=== PATIENT | female | born 1945 | race Caucasian/White ===

== ENCOUNTER 2016-11-20 12:38 | Day surgery (SDC) | payer OTHER ==
[2016-11-20] MEDS ORDERED: LR 1,000 ML IV ONE (12:39)
[2016-11-20] MEDS ORDERED: LIDOCAINE 1% 5 ML SDV ID PRN (12:39)
[2016-11-20] MEDS ORDERED: LIDOCAINE 1% 5 ML SDV ONE (12:44)
[2016-11-20] MEDS ORDERED: MIDAZOLAM 2 MG/2 ML VIAL ONE (13:08)
[2016-11-20] MEDS ORDERED: LIDOCAINE 2% 5 ML SDV ONE (13:10)
[2016-11-20] MEDS ORDERED: PROPOFOL/EMULSION 500 MG/50 ML BOTTLE IV ONE (13:10)
--- NOTE | 2016-11-20 15:45 | GPN ---
DATE OF PROCEDURE: 11/20/2016 PROCEDURE: Colonoscopy with biopsy. INDICATION: The patient is a 70-year-old female who presents for surveillance of a complicated hepatic flexure polyp. CONSENT: Risks, benefits, and alternatives of the procedure were discussed in great detail with the patient. Risks of infection, bleeding, perforation, and sedation were discussed. All questions answered. Informed consent obtained. MEDICATIONS: Propofol. Please see Anesthesia record for details. ESTIMATED BLOOD LOSS: Insignificant. COLONOSCOPIC EVALUATION: A rectal exam was performed and no palpable mass was felt. The Olympus colonoscope was introduced in the rectum and advanced to cecum where the ileocecal valve and appendiceal orifice were seen. The quality of the prep was good. In the hepatic flexure, mild nodularity was noted just proximal to the Josefa ink tattoo. This nodularity measured approximately 3 mm. Jumbo forceps was then utilized, and a biopsy was taken in this area. No other obvious areas of remnant polyp were seen. In the sigmoid colon, multiple small diverticula were seen. IMPRESSION: 1. Sigmoid diverticulosis. 2. Possible small remnant of hepatic flexure polyp. RECOMMENDATION: 1. Follow up on biopsy results. 2. Fiber supplementation. 3. Repeat colonoscopy in 2 years due to history of a complex polyp. /[id number]/MODL MTDD
== END 2016-11-20 15:50 | disposition home or self-care (01) ==
LOC: FSGY 12:38
PROVIDERS: ATTEND Internal Medicine Gastroenterology
PROC: 0DBE8ZX Excision of Large Intestine, Via Natural or Artificial Opening Endoscopic, Diagnostic (ICD-10-PCS; principal; 2016-11-20 14:00)
DX: K63.5 Polyp of colon (principal); K57.30 Diverticulosis of large intestine without perforation or abscess without bleeding
CPT/HCPCS: J2250; J2704

== ENCOUNTER → 2016-11-30 | Outpatient (CLI) | payer OTHER | LOC: FIMAGING 12:23 | DX: Z12.31 Encounter for screening mammogram for malignant neoplasm of breast (principal); Z80.3 Family history of malignant neoplasm of breast | CPT/HCPCS: G0202 ==

== ENCOUNTER → 2017-06-05 | Outpatient (CLI) | payer OTHER | LOC: FIMAGING 14:35 | PROVIDERS: ATTEND Internal Medicine | DX: N95.0 Postmenopausal bleeding (principal); N83.311 Acquired atrophy of right ovary; N83.312 Acquired atrophy of left ovary ==

== ENCOUNTER → 2017-12-03 | Outpatient (CLI) | payer OTHER | LOC: FIMAGING 11:46 | PROVIDERS: ATTEND Internal Medicine | DX: Z12.31 Encounter for screening mammogram for malignant neoplasm of breast (principal); Z80.3 Family history of malignant neoplasm of breast ==

== ENCOUNTER → 2019-01-02 | Outpatient (CLI) | payer OTHER | LOC: FIMAGING 08:32 | PROVIDERS: ATTEND Internal Medicine | DX: Z12.31 Encounter for screening mammogram for malignant neoplasm of breast (principal); Z80.3 Family history of malignant neoplasm of breast ==

== ENCOUNTER 2019-02-10 11:55 | Day surgery (SDC) | payer OTHER ==
[2019-02-10] MEDS ORDERED: LIDOCAINE 1% 2 ML INJ ID PRN (12:26)
[2019-02-10] MEDS ORDERED: LR 1,000 ML IV ONE (12:26)
--- NOTE | 2019-02-10 13:17 | PDANEPAE ---
ANE History of Present Illness here for colonoscopy ANE Past Medical History - Cardiovascular History Hx Hypertension: No Hx Arrhythmias: No Hx Chest Pain: No Hx Coronary Artery / Peripheral Vascular Disease: No Hx CHF / Valvular Disease: No Hx Palpitations: No - Pulmonary History Hx COPD: No Hx Asthma/Reactive Airway Disease: No Hx Recent Upper Respiratory Infection: No Hx Oxygen in Use at Home: No Hx Sleep Apnea: No Sleep Apnea Screening Result - Last Documented: Negative - Neurologic History Hx Cerebrovascular Accident: No Hx Seizures: No Hx Dementia: No - Endocrine History Hx Diabetes: No - Renal History Hx Renal Disorders: No - Liver History Hx Hepatic Disorders: No - Neurological & Psychiatric Hx Hx Neurological and Psychiatric Disorders: No - Cancer History Hx Cancer: No - Congenital Disorder History Hx Congenital Disorders: No - GI History Hx Gastrointestinal Disorders: Yes Gastrointestinal History Comment: occ reflux - Other Health History Other Health History: None - Chronic Pain History Chronic Pain: No - Surgical History Prior Surgeries: MENISCUS REPAIR 07/2017. 04/10/16 right ACL repair with Dr. Bill. broken foot bone repair. broken arm repair. bilateral shoulders- arthroscopy ANE Review of Systems Review of systems is: negative Review of Systems: - Exercise capacity Exercise capacity: >=4 METS METS (RN): 5 METS ANE Patient History - Allergies Allergies/Adverse Reactions: No Known Allergies Allergy (Verified 09/26/16 16:04) - Home Medications Home medications: home medication list seen and reviewed Home Medications: Lumigan 0.01% (RX) 1 drop EACHEYE HS 03/18/15 [Last Taken 11/19/16] Restasis Opht Drops(RX) 1 drop EACHEYE BID 03/18/15 [Last Taken 11/19/16] Sertraline HCl 25 mg DAILY 03/18/15 [Last Taken 11/16/16] Fish Oil 2 tab DAILY 03/23/16 [Last Taken 11/16/16] Magnesium 2 tab DAILY 03/23/16 [Last Taken 11/17/16] Multivitamin (OTC) 1 tab DAILY 03/23/16 [Last Taken 11/17/16] Zinc 1 tab DAILY 03/23/16 [Last Taken 11/17/16] Herbals/Supplements -Info Only 1 tab DAILY 11/17/16 [Last Taken 11/17/16] Rosuvastatin Calcium 02/03/19 [Last Taken Unknown] - NPO status NPO Status: no food or drink >8 hours NPO Since - Liquids (Date): 02/10/19 NPO Since - Liquids (Time): 06:30 NPO Since - Solids (Date): 02/09/19 NPO Since - Solids (Time): 09:00 - Smoking Hx Smoking Status: Former smoker - Family Anes Hx Family Hx Anesthesia Complications: None ANE Labs/Vital Signs - Vital Signs Vital Signs: reviewed preoperatively; see RN documention for details Blood Pressure: 117/62 Heart Rate: 64 Respiratory Rate: 10 O2 Sat (%): 94 Height: 166.37 cm Weight: 73.482 kg ANE Physical Exam - Airway Neck exam: FROM Mallampati Score: Class 1 Mouth exam: normal dental/mouth exam - Pulmonary Pulmonary: no respiratory distress - Cardiovascular Cardiovascular: regular rate and rhythym - ASA Status ASA Status: II ANE Anesthesia Plan Anesthesia Plan: GA with mask
[2019-02-10] MEDS ORDERED: PROPOFOL/EMULSION 500 MG/50 ML BOTTLE IV ONE (13:20)
--- NOTE | 2019-02-10 13:29 | PDGENHP ---
History & Physical Chief Complaint: colonic polyp History of Present Illness: 73 year old presents for surveillance colonoscopy. Pertinent Past, Social, Family History: PMHx: hyperlipidema Relevant Physical Exam: HEENT:anicteric. CV: RRR+s1s2. Lungs: CTAB. Abd: soft , nt, + bs Cardiorespiratory Assessment: ASA 2
[2019-02-10] MEDS ORDERED: fentaNYL 100 MCG/2 ML INJ IVP PRN (13:40)
[2019-02-10] MEDS ORDERED: NALOXONE HCL 0.4 MG/ML INJ IVP PRN (13:40)
[2019-02-10] MEDS ORDERED: ONDANSETRON 4 MG/2 ML VIAL IVP PRN (13:40)
[2019-02-10] MEDS ORDERED: ALBUTEROL 3 ML DEYVIAL IH PRN (13:40)
--- NOTE | 2019-02-10 14:48 | GIREPORT ---
[facility] Surgical Services - Endoscopy Department Patient Name: Juanita Celis Procedure Date: 02/10/2019 1:14 PM Patient Type: Outpatient Attending MD/ ER Physician: Hayden Clark MD Procedure: Colonoscopy Indications: High risk colon cancer surveillance: Personal history of colonic polyps Patient Profile: 73 year old female with a history of a complex hepatic flexure polyp presents for surveillance colonoscopy. Providers: Hayden Clark MD Medicines: Monitored Anesthesia Care Complications: No immediate complications. Estimated blood loss: Minimal. Description of Procedure: After obtaining informed consent, the scope was passed under direct vis ion. Throughout the procedure, the patient's blood pressure, pulse, and oxyg en saturations were monitored continuously. The Colonoscope with irrigatio n channel was introduced through the anus and advanced to the cecum, identified by appendiceal orifice and ileocecal valve. The colonoscopy was performed without difficulty. The patient tolerated the procedure well. The quality of the bowel preparation was good. The ileocecal valve, appendi ceal orifice, and rectum were photographed. Findings: The perianal and digital rectal examinations were normal. Pertinent negatives include no palpable rectal lesions. A localized area of mildly nodular mucosa was found at the hepatic flex ure at the scar from previous polypectomy. Biopsies were taken with a cold forceps for histology. Diverticula were found in the sigmoid colon and descending colon. Estimated Blood Loss: Estimated blood loss was minimal. Post Op Diagnosis: - Nodular mucosa at the hepatic flexure. Biopsied. Remnant polyp? - Diverticulosis in the sigmoid colon and in the descending colon. Recommendation: - Discharge patient to home (with escort). - Advance diet as tolerated. - Continue present medications. - Await pathology results. - Repeat colonoscopy for surveillance based on pathology results. - Thank you for allowing me to participate in the care of your patient. Attending Participation: I personally performed the entire procedure. Hayden Clark MD Hayden Clark MD 02/10/2019 2:47:29 PM This report has been signed electronicallyHayden Clark MD Number of Addenda: 0 Note Initiated On: 02/10/2019 1:14 PM Total Procedure Duration Time 0 hours 22 minutes 31 seconds [email or web address]
[2019-02-10 15:32] VITALS: BP 115/72
== END 2019-02-10 15:30 | disposition home or self-care (01) ==
LOC: FSGY 11:55
PROVIDERS: ATTEND Internal Medicine Gastroenterology
PROC: 0DBL8ZX Excision of Transverse Colon, Via Natural or Artificial Opening Endoscopic, Diagnostic (ICD-10-PCS; principal; 2019-02-10 13:30)
DX: Z12.11 Encounter for screening for malignant neoplasm of colon (principal); D12.3 Benign neoplasm of transverse colon; K57.30 Diverticulosis of large intestine without perforation or abscess without bleeding; E78.5 Hyperlipidemia, unspecified; Z86.010 Personal history of colon polyps; Z87.891 Personal history of nicotine dependence
CPT/HCPCS: J2704